=== PATIENT | male | born 1975 | race Caucasian/White ===

== ENCOUNTER → 2021-02-17 | Outpatient (CLI) | payer BC ==
[~2021-02-17] MED LIST: CHLO125TA PO; LISI20TA35 PO
== END ==
LOC: M LABSMTC 09:34
PROVIDERS: ATTEND Anesthesiology
DX: Z01.812 Encounter for preprocedural laboratory examination (principal); Z11.52 Encounter for screening for COVID-19

== ENCOUNTER 2021-02-21 06:58 | Day surgery (SDC) | payer BC ==
[~2021-02-21] VITALS: Ht 177.8 cm; Wt 104.8 kg
[~2021-02-21 06:58] MED LIST changes: +NS 1,000 ML IV ONE
[2021-02-21 08:45] VITALS: BP 129/85
--- NOTE | 2021-02-21 08:54 | ROOR ---
Patient Name: Dakota Wiggins Procedure Date: 02/21/2021 8:09 AM Date of : 1975 Age: 46 Room: [facility] Gender: Male Note Status: Finalized Procedure: Total Colonoscopy to Cecum Indications: Screening in patient at increased risk: Family history of 1st-degree relative with colorectal cancer, This is the patient's first colonoscopy Providers: Mikey Javier MD Referring MD: Jarrett Montgomery MD Requesting Provider: Medicines: Monitored Anesthesia Care Complications: No immediate complications. Procedure: Pre-Anesthesia Assessment: - The heart rate, respiratory rate, oxygen saturations, blood pressure, adequacy of pulmonary ventilation, and response to care were monitored throughout the procedure. The Colonoscope was introduced through the anus and advanced to the cecum, identified by appendiceal orifice and ileocecal valve. The colonoscopy was performed without difficulty. The patient tolerated the procedure well. The quality of the bowel preparation was good. Findings: The perianal and digital rectal examinations were normal. No other significant abnormalities were identified in a careful examination of the remainder of the colon. The exam was otherwise without abnormality on direct and retroflexion views. Impression: - The examination was otherwise normal on direct and retroflexion views. - No specimens collected. - The exam was otherwise normal to the cecum. Recommendation: - Patient has a contact number available for emergencies. The signs and symptoms of potential delayed complications were discussed with the patient. Return to normal activities tomorrow. Written discharge instructions were provided to the patient. - High fiber diet. - Discharge patient to home. - Continue present medications. - Repeat colonoscopy in 5 years for screening purposes. - Return to referring physician. - The findings and recommendations were discussed with the patient's family. Procedure Code(s): --- Professional --- G0105, Colorectal cancer screening; colonoscopy on individual at high risk Diagnosis Code(s): --- Professional --- Z80.0, Family history of malignant neoplasm of digestive organs CPT copyright 2019 [employer]. All rights reserved. The codes documented in this report are preliminary and upon insurance coder review may be revised to meet current compliance requirements. Mikey Javier MD Mikey Javier MD 02/21/2021 8:54:54 AM Electronically signed by Mikey Javier MD Number of Addenda: 0 Note Initiated On: 02/21/2021 8:09 AM Estimated Blood Loss: Estimated blood loss: none.
[2021-02-21] MEDS ORDERED: propofoL 200 MG/20 ML VIAL As Ordered ONE (09:02)
== END 2021-02-21 08:53 | disposition home or self-care (01) ==
LOC: M OPP 06:58
PROVIDERS: ATTEND Internal Medicine Gastroenterology
DX: Z12.11 Encounter for screening for malignant neoplasm of colon (principal); Z80.0 Family history of malignant neoplasm of digestive organs